=== PATIENT | male | born 1945 | race Caucasian/White ===

== ENCOUNTER 2016-04-17 05:12 | Inpatient (IN) | payer MEDICARE, OTHER ==
[~2016-04-17] VITALS: Ht 175.3 cm; Wt 95.7 kg
[~2016-04-17 05:12] MED LIST: LISI10TA5 PO; METH10TA2 PO; PANT40TA2 PO
[2016-04-17] MEDS ORDERED: ASPIRIN 325 MG TABLET ONE (05:23)
[2016-04-17] MEDS ORDERED: LORAZEPAM INJ 2 MG/ML VIAL ONE (05:28)
[2016-04-17] MEDS ORDERED: ASPIRIN 325 MG TABLET PO ONE (05:30)
[2016-04-17] MEDS ORDERED: NITROGLYCERIN 0.4 MG/TAB BOTTLE SL ONE (05:30)
[2016-04-17] MEDS ORDERED: LORAZEPAM INJ 2 MG/ML VIAL IV ONE (05:30)
[2016-04-17 05:37] LABS: BASOPHILS # (AUTO) 0.2 /CMM (0.0-0.2); BASOPHILS % (AUTO) 1.8 % (0.0-2.0); DIFF TOTAL % 100 %; EOSINOPHILS # (AUTO) 0.8 /CMM (0.0-0.7); EOSINOPHILS % (AUTO) 6.8 % (0.0-6.0); HEMATOCRIT 45 % (39-51); HEMOGLOBIN 14.6 g/dL (13.5-17.5); LYMPHOCYTES # (AUTO) 5.2 /CMM (0.8-4.8); LYMPHOCYTES % (AUTO) 44.5 % (20.0-44.0); MEAN CORPUSCULAR HEMOGLOBIN 28 PG (26.0-33.0); MEAN CORPUSCULAR HGB CONC 33 g/dl (31.0-36.0); MEAN CORPUSCULAR VOLUME 87 fL (80-96); MONOCYTES # (AUTO) 0.8 /CMM (0.1-1.30); MONOCYTES % (AUTO) 6.8 % (2.0-12.0); NEUTROPHILS # (AUTO) 4.7 /CMM (1.8-8.9); NEUTROPHILS % (AUTO) 40.1 % (43.0-81.0); PLATELET COUNT (AUTO) 196 /CMM (150-450); RED BLOOD CELL COUNT(AUTO) 5.18 MIL/uL (4.5-6.0); WHITE BLOOD COUNT (AUTO) 11.6 K/uL (4.3-11.0)
[2016-04-17 05:49] LABS: ANION GAP 15 (5-14); CALCIUM, SERUM 9.3 mg/dL (8.5-10.1); CARBON DIOXIDE 27 mmol/L (21-32); CHLORIDE 103 mmol/L (98-107); CREATININE 1.2 mg/dL (0.6-1.3); GLUCOSE 97 mg/dL (74-106); SODIUM SERUM 141 mmol/L (136-145); UREA NITROGEN, BLOOD 23 mg/dL (7-18)
[2016-04-17 05:51] LABS: INR 0.98 (0.87-1.13); PROTHROMBIN TIME 10.6 SECS (9.5-12.7)
[2016-04-17 06:06] LABS: TROPONIN I < 0.017 ng/mL (0.00-0.056)
[2016-04-17 06:30] VITALS: BP 158/71
[2016-04-17 08:00] VITALS: BP 148/75
[2016-04-17] MEDS ORDERED: CLON0.1T PO (08:07)
[2016-04-17 12:00] VITALS: BP 175/85
== END 2016-04-17 12:57 | disposition left against medical advice (07) | DRG 206 ==
LOC: ER 05:15 → TELE1 06:14
PROVIDERS: ADMIT Internal Medicine; ATTEND Internal Medicine
DX: M94.0 Chondrocostal junction syndrome [Tietze] (principal); J98.11 Atelectasis; I10 Essential (primary) hypertension; F17.210 Nicotine dependence, cigarettes, uncomplicated; R07.89 Other chest pain; F11.90 Opioid use, unspecified, uncomplicated; Z91.19 Patient's noncompliance with other medical treatment and regimen
CPT/HCPCS: 36415; 71010-TC; 80048-TC; 84484-TC; 85025-TC; 85730-TC; 87081-TC; A4606; J2060; Z7610

== ENCOUNTER 2017-08-05 18:41 | Emergency (ER) | payer MEDICARE, OTHER ==
[~2017-08-05] VITALS: Ht 175.3 cm; Wt 86.6 kg
[~2017-08-05 18:41] MED LIST changes: +CLON0.1T PO
[2017-08-05 19:22] LABS: BASOPHILS # (AUTO) 0.1 /CMM (0.0-0.2); EOSINOPHILS # (AUTO) 0.6 /CMM (0.0-0.7); EOSINOPHILS % (AUTO) 6.2 % (0.0-6.0); HEMATOCRIT 42 % (39-51); HEMOGLOBIN 14.3 g/dL (13.5-17.5); LYMPHOCYTES # (AUTO) 3.5 /CMM (0.8-4.8); LYMPHOCYTES % (AUTO) 38.2 % (20.0-44.0); MEAN CORPUSCULAR HEMOGLOBIN 29 PG (26.0-33.0); MEAN CORPUSCULAR HGB CONC 34 g/dl (31.0-36.0); MEAN CORPUSCULAR VOLUME 85 fL (80-96); MONOCYTES # (AUTO) 0.7 /CMM (0.1-1.30); MONOCYTES % (AUTO) 7.5 % (2.0-12.0); NEUTROPHILS # (AUTO) 4.4 /CMM (1.8-8.9); NEUTROPHILS % (AUTO) 47.1 % (43.0-81.0); PLATELET COUNT (AUTO) 162 /CMM (150-450); RDW COEFFICIENT OF VARIATION 13.7 (11.5-15.0); RED BLOOD CELL COUNT(AUTO) 4.93 MIL/uL (4.5-6.0); WHITE BLOOD COUNT (AUTO) 9.3 K/uL (4.3-11.0)
--- NOTE | 2017-08-05 19:30 | NUR ---
PT BBSELF FROM HOME C/O OF SHARP CP NON RADIATING SINCE 1800. PT DENIES PAIN AT TIME OF ASSESSMENT. SKIN WNL. -N/V/D DURING ONSET OF CHEST PAIN. PT IS AAOX4. -DIZZINESS. RESP EVEN AND UNLABORED. NO S/S OF ACUTE DISTRESS NOTED. PT PLACED ON MUSHROOM FARMER AND POX. VSS. PT PLACED IN GOWN AND PT SAFETY AND COMFORT MEASURES IN PLACE.
[2017-08-05 19:33] LABS: CALCIUM, SERUM 9.1 mg/dL (8.5-10.1); CARBON DIOXIDE 31 mmol/L (21-32); CHLORIDE 100 mmol/L (98-107); CREATININE 1.4 mg/dL (0.6-1.3); GLUCOSE 89 mg/dL (74-106); POTASSIUM 4.1 mmol/L (3.5-5.1); SODIUM SERUM 137 mmol/L (136-145); UREA NITROGEN, BLOOD 22 mg/dL (7-18)
[2017-08-05 19:37] LABS: INR 0.95 (0.85-1.15)
[2017-08-05 19:41] LABS: TROPONIN I < 0.017 ng/mL (0.00-0.056)
[2017-08-05] MEDS ORDERED: ASPIRIN 325 MG TABLET PO ONE (20:30)
[2017-08-05] MEDS ORDERED: NITROGLYCERIN 0.4 MG/TAB BOTTLE SL ONE (20:30)
[2017-08-05] MEDS ORDERED: MORPHINE SULFATE INJ 2 MG/ML DISP.SYRIN IV ONE (20:30)
--- NOTE | 2017-08-05 20:38 | NUR ---
PER VERBAL ORDER FROM MD, PT TO BE GIVEN ASPIRIN 81MG PO ONCE.
[2017-08-05] MEDS ORDERED: ASPIRIN 81 MG TAB.CHEW ONE (20:40)
[2017-08-05 21:09] VITALS: BP 147/77
--- NOTE | 2017-08-05 21:16 | NUR ---
Patient does not wish to proceed with medical care recommended by ([email or web address] ). Patient given information related to possible complications, up to and including , which could occur as a result of leaving the hospital at this time. Patient verbalizes understanding of risks involved due to leaving against medical advice. Patient has signed AMA form. VSS upon leaving AMA. MD made aware. IV removed. Catheter intact and site benign. Pressure and 4x4 applied to site. No bleeding noted.
[2017-08-05] MEDS ORDERED: ASPIRIN 81 MG TAB.CHEW PO ONE (22:30)
== END 2017-08-05 21:44 | disposition left against medical advice (07) ==
LOC: ER 18:52
DX: R07.9 Chest pain, unspecified (principal); I10 Essential (primary) hypertension; F17.200 Nicotine dependence, unspecified, uncomplicated; Z86.19 Personal history of other infectious and parasitic diseases; Z88.6 Allergy status to analgesic agent
CPT/HCPCS: 36415; 71045-TC; 80048-TC; 84484-TC; 85025-TC; 85730-TC; A4606; Z7610